=== PATIENT | female | born 1975 | race Caucasian/White ===

== ENCOUNTER 2017-05-10 03:08 | Emergency (ER) | payer MEDICAID ==
[2017-05-10 03:08] VITALS: BMI 38.4
[2017-05-10 03:20] VITALS: BP 122/65; PULSE 120; RESP 17; TEMP 98; O2SAT 98
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
--- NOTE | 2017-05-10 05:59 | CT ---
EXAM: CT Left Lower Extremity Without Intravenous Contrast, Knee EXAM DATE/TIME: 05/10/2017 4:35 AM CLINICAL HISTORY: 42 years old, female; Pain; Knee; Left; Additional info: Knee pain S/P fall TECHNIQUE: Axial computed tomography images of the left knee without intravenous contrast. All CT scans at this facility use one or more dose reduction techniques, viz.: automated exposure control; ma/kV adjustment per patient size (including targeted exams where dose is matched to indication; i.e. head); or iterative reconstruction technique. Coronal and sagittal reformatted images were created and reviewed. COMPARISON: No relevant prior studies available. FINDINGS: BONES/JOINTS: Mild lateral subluxation of the patella relative to the trochlear groove of the distal femur. There is also mild widening of the space between the medial patella and the medial aspect of the trochlear groove. Small knee joint effusion, with no evidence of lipohemarthrosis. Tricompartmental osteoarthritic changes, moderate in degree, including of the patellofemoral joint laterally. No acute fractures are seen. SOFT TISSUES: Mild, diffuse subcutaneous edema, greatest anteriorly. No evidence of soft tissue hematoma. IMPRESSION: - Mild lateral subluxation of the patella. This could be due to osteoarthritic changes at the joint, but in the setting of trauma, could also be secondary to transient patellar dislocation. Consider followup MRI for further evaluation. - Small knee joint effusion. - No acute fractures are seen. - See above for remaining findings.
--- NOTE | 2017-05-10 10:06 | RAD ---
PROCEDURE: Left Knee Radiographs. HISTORY: Status post fall COMPARISON: None. FINDINGS: BONES: No evidence of acute displaced fracture nor dislocation. JOINTS: Tricompartmental degenerative osteoarthritis. JOINT EFFUSION: Questionable small suprapatellar joint effusion OTHER FINDINGS: None. IMPRESSION: No acute fractures. Tricompartmental DJD. Questionable small joint effusion . If symptoms persist or worsen, consider followup CT scan or MRI.
== END 2017-05-10 06:30 | disposition home or self-care (01) ==
LOC: H.ER 03:08
DX: S83.002A Unspecified subluxation of left patella, initial encounter (principal); W19.XXXA Unspecified fall, initial encounter; Y92.89 Other specified places as the place of occurrence of the external cause; F10.129 Alcohol abuse with intoxication, unspecified; I10 Essential (primary) hypertension; M17.12 Unilateral primary osteoarthritis, left knee; F41.9 Anxiety disorder, unspecified
CPT/HCPCS: 29530; 73562; 73700; 96372; 99281; J1885